=== PATIENT | male | born 1930 | race Caucasian/White ===

== ENCOUNTER 2017-03-30 07:06 | Inpatient (IN) | payer OTHER ==
[~2017-03-30] VITALS: Ht 170.2 cm; Wt 82.5 kg
[2017-03-30 08:02] LABS: EOSINOPHIL (%) 0.6 % (0-5); HEMATOCRIT 35.8 % (38.0-50.0); IMMATURE GRANULOCYTE (%) 0.4 % (0.0-0.7); INSTRUMENT ABS NEUTROPHIL CT 4.4 K/uL; LYMPHOCYTE COUNT 0.3 K/uL (1.0-2.8); MCH 30.1 PG (29.0-34.0); MCHC 32.1 G/DL (30.0-36.0); MCV 93.7 FL (86-99); MONOCYTE (%) 11.5 % (3-12); MONOCYTE COUNT 0.6 K/uL (0-0.8); NEUTROPHIL (%) 81.3 % (45-76); NEUTROPHIL COUNT 4.4 K/uL (1.8-6.4); PLATELET COUNT 96 K/uL (156-360); RBC DIS.WIDTH-CV 13.5 % (11.8-14.6); RBC DIS.WIDTH-SD 46.1 % (39-53); RED BLOOD COUNT 3.82 M/uL (4.00-5.50); WHITE BLOOD COUNT 5.4 K/uL (4.1-10.2)
[2017-03-30 08:28] LABS: TROP-I INTERPRETATION NEGATIVE; TROPONIN-I 0.05 ng/mL (0.0-0.30)
[2017-03-30 08:46] LABS: CHLORIDE 108 mEq/L (99-109); POTASSIUM 4.2 mEq/L (3.7-5.4); SODIUM 139 mEq/L (136-147)
[2017-03-30 08:48] LABS: GLUCOSE 152 mg/dL (70-99)
[2017-03-30 08:49] LABS: ANION GAP 11 MEQ/L (2-14)
[2017-03-30 08:50] LABS: TOTAL BILIRUBIN 0.6 mg/dL (0.0-1.0)
[2017-03-30 08:51] LABS: ALKALINE PHOSPHATASE 59 IU/L (3-129)
[2017-03-30 08:52] LABS: GFR ESTIMATE (CALCULATED) > 59 mL/min/ (58.99-99999)
[2017-03-30 08:53] LABS: UREA NITROGEN (BUN) 16 mg/dL (9-23)
[2017-03-30 10:53] LABS: ADD MIUA? YES; BILIRUBIN NEGATIVE; BLOOD NEGATIVE; COLOR YELLOW ((YELLOW)); GLUCOSE (STRIP) NEGATIVE; KETONES NEGATIVE; LEUKOCYTES MODERATE; NITRITE NEGATIVE; PROTEIN (STRIP) 100; SPECIFIC GRAVITY 1.018 (1.000-1.030); UROBILINOGEN 0.2 MG/DL (0.2-1.0)
[2017-03-30 10:58] LABS: BACTERIA NONE SEEN /HPF; EPITHELIAL CELLS RARE /HPF; GRANULAR CASTS 0-5 /LPF; HYALINE CASTS 0-5 /LPF; MUCUS TRACE /LPF; RED BLOOD CELLS 0-5 /HPF (0-5); UCUL ADDED? YES
[2017-03-30] MEDS ORDERED: METFORMIN HCL500 M1 PO ×2 (11:09)
[2017-03-30] MEDS ORDERED: FUROSEMIDE40 MG PO (11:10)
[2017-03-30] MEDS ORDERED: LOSARTAN POTASS50 MG PO (11:10)
[2017-03-30] MEDS ORDERED: ATORVASTATIN CA10 MG PO (11:11)
[2017-03-30] MEDS ORDERED: FINASTERIDE5 MG PO (11:11)
[2017-03-30] MEDS ORDERED: DOXAZOSIN MESYLA4 MG PO (11:11)
[2017-03-30] MEDS ORDERED: LO-DOSE ASPIRIN81 M2 PO (11:12)
[2017-03-30] MEDS ORDERED: MULTIVITAMIN1 EAC2 PO (11:12)
[2017-03-30 14:31] LABS: TROP-I INTERPRETATION NEGATIVE
[2017-03-30 17:06] LABS: POINT-OF-CARE METER ID UU13113781
[2017-03-30 17:23] VITALS: BP 133/67
[2017-03-30 20:22] LABS: TROP-I INTERPRETATION NEGATIVE; TROPONIN-I 0.14 ng/mL (0.0-0.30)
[2017-03-30 21:00] VITALS: BP 126/69
[2017-03-30 21:38] LABS: POINT-OF-CARE METER ID UU14174216
[2017-03-30 23:57] VITALS: BP 102/61
[2017-03-31 03:58] VITALS: BP 132/73
[2017-03-31 06:56] LABS: ANION GAP 10 MEQ/L (2-14); CHLORIDE 108 MEQ/L (99-109); GFR ESTIMATE (CALCULATED) > 59 mL/min/ (58.99-99999); POTASSIUM 3.8 MEQ/L (3.7-5.4); SAMPLE HEMOLYSIS CHECK 0; SAMPLE ICTERIC CHECK 0; SAMPLE LIPEMIA CHECK 0; SODIUM 144 MEQ/L (136-147); UREA NITROGEN (BUN) 20 mg/dL (9-23)
[2017-03-31 06:57] LABS: GLUCOSE 65 mg/dL (70-99)
[2017-03-31 08:21] LABS: POINT-OF-CARE METER ID UU14174216; POINT-OF-CARE USER ID NUTSLF44
[2017-03-31 09:44] VITALS: BP 124/68
[2017-03-31 11:12] VITALS: BP 107/65
[2017-03-31 11:52] LABS: POINT-OF-CARE METER ID UU14174216
[2017-03-31 15:44] VITALS: BP 124/69
[2017-03-31 16:39] LABS: POINT-OF-CARE METER ID UU14174216
[2017-03-31 20:44] VITALS: BP 127/71
[2017-03-31 21:27] LABS: POINT-OF-CARE METER ID UU14314088
[2017-03-31 23:50] VITALS: BP 133/75
[2017-04-01 04:59] VITALS: BP 130/72
[2017-04-01 05:34] LABS: HEMATOCRIT 34.3 % (38.0-50.0); MCH 30.4 PG (29.0-34.0); MCHC 32.4 G/DL (30.0-36.0); MEAN PLAT.VOLUME 12.3 uM^3 (9.0-12.4); PLATELET COUNT 94 K/uL (156-360); RBC DIS.WIDTH-CV 13.8 % (11.8-14.6); RBC DIS.WIDTH-SD 47.7 % (39-53); RED BLOOD COUNT 3.65 M/uL (4.00-5.50); WHITE BLOOD COUNT 4.1 K/uL (4.1-10.2)
[2017-04-01 06:11] LABS: ANION GAP 10 MEQ/L (2-14); CHLORIDE 107 MEQ/L (99-109); GFR ESTIMATE (CALCULATED) > 59 mL/min/ (58.99-99999); POTASSIUM 3.7 MEQ/L (3.7-5.4); SAMPLE HEMOLYSIS CHECK 0; SAMPLE ICTERIC CHECK 0; SAMPLE LIPEMIA CHECK 0; SODIUM 141 MEQ/L (136-147); UREA NITROGEN (BUN) 29 mg/dL (9-23)
[2017-04-01 06:12] LABS: GLUCOSE 106 mg/dL (70-99)
[2017-04-01 09:00] VITALS: BP 134/77
[2017-04-01 12:00] VITALS: BP 130/78
[2017-04-01 12:04] LABS: POINT-OF-CARE METER ID UU14314088
[2017-04-01 16:42] VITALS: BP 147/65
[2017-04-01 16:52] LABS: POINT-OF-CARE METER ID UU13113781
[2017-04-01 19:45] VITALS: BP 134/71
[2017-04-01 21:54] LABS: POINT-OF-CARE METER ID UU14314088
[2017-04-01 23:43] VITALS: BP 136/69
[2017-04-02 03:03] VITALS: BP 118/78
[2017-04-02 06:01] LABS: POINT-OF-CARE METER ID UU13113774
[2017-04-02 06:17] LABS: EOSINOPHIL (%) 1.1 % (0-5); HEMATOCRIT 36.6 % (38.0-50.0); IMMATURE GRANULOCYTE (%) 0.3 % (0.0-0.7); INSTRUMENT ABS NEUTROPHIL CT 2.5 K/uL; LYMPHOCYTE COUNT 0.7 K/uL (1.0-2.8); MCH 30.1 PG (29.0-34.0); MCHC 32.2 G/DL (30.0-36.0); MCV 93.4 FL (86-99); MONOCYTE (%) 10.9 % (3-12); MONOCYTE COUNT 0.4 K/uL (0-0.8); NEUTROPHIL (%) 67.6 % (45-76); NEUTROPHIL COUNT 2.5 K/uL (1.8-6.4); PLATELET COUNT 96 K/uL (156-360); RBC DIS.WIDTH-CV 13.7 % (11.8-14.6); RBC DIS.WIDTH-SD 46.8 % (39-53); RED BLOOD COUNT 3.92 M/uL (4.00-5.50); WHITE BLOOD COUNT 3.7 K/uL (4.1-10.2)
[2017-04-02 06:42] LABS: ANION GAP 9 MEQ/L (2-14); CHLORIDE 108 MEQ/L (99-109); GFR ESTIMATE (CALCULATED) > 59 mL/min/ (58.99-99999); GLUCOSE 125 mg/dL (70-99); POTASSIUM 3.7 MEQ/L (3.7-5.4); SAMPLE HEMOLYSIS CHECK 0; SAMPLE ICTERIC CHECK 0; SAMPLE LIPEMIA CHECK 0; SODIUM 144 MEQ/L (136-147); UREA NITROGEN (BUN) 23 mg/dL (9-23)
[2017-04-02 07:24] VITALS: BP 128/68
[2017-04-02 11:37] LABS: POINT-OF-CARE METER ID UU13113774
[2017-04-02] MEDS ORDERED: OSELTAMIVIR PHO30 MG PO (11:49)
== END 2017-04-02 14:25 | disposition home health service (06) | DRG 291 ==
LOC: EME → EDBD 07:06 → EME 07:06 → 4EAST 09:46 → EDOF 09:46 → ENRESERV 09:48 → 4EAST 16:35 → ENRESERV 04-02 02:04 → 5EAST 04-02 02:38 → ENPENDDIS 04-02 13:51 → 5EAST 04-02 14:25
PROVIDERS: Emergency Medicine; Hospitalist; Internal Medicine
DX: I11.0 Hypertensive heart disease with heart failure (principal); I50.23 Acute on chronic systolic (congestive) heart failure; J96.01 Acute respiratory failure with hypoxia; J10.1 Influenza due to other identified influenza virus with other respiratory manifestations; J10.2 Influenza due to other identified influenza virus with gastrointestinal manifestations; I27.20 Pulmonary hypertension, unspecified; I08.3 Combined rheumatic disorders of mitral, aortic and tricuspid valves; D69.6 Thrombocytopenia, unspecified; E11.9 Type 2 diabetes mellitus without complications; D64.9 Anemia, unspecified; E78.5 Hyperlipidemia, unspecified; M79.605 Pain in left leg; I44.4 Left anterior fascicular block; N40.0 Benign prostatic hyperplasia without lower urinary tract symptoms; Z79.84 Long term (current) use of oral hypoglycemic drugs; Z87.891 Personal history of nicotine dependence; Z82.5 Family history of asthma and other chronic lower respiratory diseases
CPT/HCPCS: 70450; 71010; 73552; 73590; 80048; 80053; 81003; 82948; 83880; 84484; 85025; 85027; 87086; 87493; 87502; 93005; 93306; 99281; 99285; J1650; J1815; J1940; J7030

== ENCOUNTER 2017-08-03 09:35 | Observation (INO) | payer OTHER ==
[~2017-08-03] VITALS: Ht 172.7 cm; Wt 75.5 kg
[~2017-08-03 09:35] MED LIST: ATORVASTATIN CA10 MG PO; DOXAZOSIN MESYLA4 MG PO; FINASTERIDE5 MG PO; FUROSEMIDE40 MG PO; GLIMEPIRIDE4 MG PO; LECITHIN1200 M1 PO; LO-DOSE ASPIRIN81 M2 PO; LOSARTAN POTASS50 MG PO; METFORMIN HCL500 M1 PO; MULTIVITAMIN1 EAC2 PO; OSELTAMIVIR PHO30 MG PO; VITAMIN C1000 MG PO
[2017-08-03 21:20] VITALS: BP 142/68
[2017-08-03 23:28] VITALS: BP 128/60
[2017-08-04 03:08] VITALS: BP 138/63
[2017-08-04 05:40] LABS: BASOPHIL (%) 0.3 % (0-1); EOSINOPHIL (%) 1.9 % (0-5); EOSINOPHIL COUNT 0.1 K/uL (0-0.3); HEMATOCRIT 34.1 % (38.0-50.0); IMMATURE GRANULOCYTE (%) 0.3 % (0.0-0.7); LYMPHOCYTE (%) 15.9 % (15-42); LYMPHOCYTE COUNT 0.9 K/uL (1.0-2.8); MCH 30.7 PG (29.0-34.0); MCHC 33.1 G/DL (30.0-36.0); MCV 92.7 FL (86-99); MONOCYTE (%) 7.9 % (3-12); MONOCYTE COUNT 0.5 K/uL (0-0.8); NEUTROPHIL (%) 73.7 % (45-76); NEUTROPHIL COUNT 4.4 K/uL (1.8-6.4); PLATELET COUNT 111 K/uL (156-360); RBC DIS.WIDTH-CV 12.6 % (11.8-14.6); RBC DIS.WIDTH-SD 42.5 % (39-53); RED BLOOD COUNT 3.68 M/uL (4.00-5.50); WHITE BLOOD COUNT 5.9 K/uL (4.1-10.2)
[2017-08-04 05:49] LABS: HEMOGLOBIN 11.3 G/DL (12.5-16.6)
[2017-08-04 06:23] LABS: CHLORIDE 112 MEQ/L (99-109); CREATININE 0.7 MG/DL (0.6-1.3); GFR ESTIMATE (CALCULATED) > 59 mL/min/ (58.99-99999); GLUCOSE 172 mg/dL (70-99); POTASSIUM 4.2 MEQ/L (3.7-5.4); SODIUM 142 MEQ/L (136-147); UREA NITROGEN (BUN) 16 mg/dL (9-23)
[2017-08-04 07:50] VITALS: BP 156/78
[2017-08-04] MEDS ORDERED: CLOPIDOGREL75 MG PO (10:00)
== END 2017-08-04 11:15 | disposition home or self-care (01) ==
LOC: CATH 09:35 → ENRESERV 15:47 → 2SOUTH 15:48 → 4EAST 15:48 → ENRESERV 16:55 → 2SOUTH 18:11 → ENRESERV 18:16 → 4EAST 21:29
PROVIDERS: Internal Medicine Cardiovascular Disease
PROC: 4A023N7 Measurement of Cardiac Sampling and Pressure, Left Heart, Percutaneous Approach (ICD-10-PCS; principal; 2017-08-03)
PROC: B2111ZZ Fluoroscopy of Multiple Coronary Arteries using Low Osmolar Contrast (ICD-10-PCS; principal; 2017-08-03)
PROC: 027034Z Dilation of Coronary Artery, One Artery with Drug-eluting Intraluminal Device, Percutaneous Approach (ICD-10-PCS; principal; 2017-08-03)
DX: I25.10 Atherosclerotic heart disease of native coronary artery without angina pectoris (principal); I25.84 Coronary atherosclerosis due to calcified coronary lesion; I97.630 Postprocedural hematoma of a circulatory system organ or structure following a cardiac catheterization; I11.0 Hypertensive heart disease with heart failure; I50.22 Chronic systolic (congestive) heart failure; I25.5 Ischemic cardiomyopathy; I35.0 Nonrheumatic aortic (valve) stenosis; E11.9 Type 2 diabetes mellitus without complications; I71.2 Thoracic aortic aneurysm, without rupture; R06.01 Orthopnea; E78.2 Mixed hyperlipidemia; I49.5 Sick sinus syndrome; Z87.891 Personal history of nicotine dependence; Z79.82 Long term (current) use of aspirin; Z79.84 Long term (current) use of oral hypoglycemic drugs; Y83.8 Other surgical procedures as the cause of abnormal reaction of the patient, or of later complication, without mention of misadventure at the time of the procedure
CPT/HCPCS: 80048; 82948; 85025; 85347; 93005; C1725; C1750; C1769; C1874; C1887; C1894; G0378; J0461; J1644; J2250; J3010; J3246; J7030